=== PATIENT | female | born 1990 | race African-American/Black ===

== ENCOUNTER 2020-02-13 20:20 | Emergency (ER) | payer MEDICAID ==
[~2020-02-13] VITALS: Ht 162.6 cm; Wt 61.0 kg
[2020-02-13 20:33] VITALS: BP 142/89
[2020-02-13] MEDS ORDERED: HYDROCODONE/ACETAMINOPHEN 5/325MG TABLET PO ONE (21:15)
== END 2020-02-14 00:03 | disposition home or self-care (01) ==
LOC: ER 20:20
DX: M79.642 Pain in left hand (principal); M79.89 Other specified soft tissue disorders; F12.10 Cannabis abuse, uncomplicated
CPT/HCPCS: 73110; 73130; 99284